=== PATIENT | male | born 1995 | race Two or more races ===

== ENCOUNTER 2017-07-05 21:02 | Emergency (ER) | payer MEDICAID ==
[2017-07-05 21:21] VITALS: BP 130/89
== END 2017-07-06 00:59 | disposition left against medical advice (07) ==
LOC: ER 21:02
DX: K21.9 Gastro-esophageal reflux disease without esophagitis (principal); Z53.21 Procedure and treatment not carried out due to patient leaving prior to being seen by health care provider

== ENCOUNTER 2023-01-17 05:48 | Emergency (ER) | payer MEDICAID ==
[~2023-01-17] VITALS: Ht 175.3 cm; Wt 109.0 kg
[2023-01-17 08:00] VITALS: PULSE 90; RESP 20; O2SAT 99
[2023-01-17] MEDS ORDERED: diphenhdrAMINE HCL 50 MG/1 ML VL IM ONE (08:00)
[2023-01-17] MEDS ORDERED: FAMOTIDINE 20 MG TAB PO ONE (08:00)
[2023-01-17] MEDS ORDERED: methylPREDNISolone SOD SUCC 125 MG/2 ML VL IV ONE (08:00)
[2023-01-17 08:24] VITALS: BP 112/80; PULSE 94; RESP 20; TEMP 98.6; O2SAT 99
[2023-01-17] MEDS ORDERED: EPIN0.3I24 IJ (08:32)
[2023-01-17] MEDS ORDERED: HYDR-3682 PO (08:32)
[2023-01-17] MEDS ORDERED: PRED20TA2 PO (08:32)
== END 2023-01-17 10:17 | disposition home or self-care (01) ==
LOC: ER 05:48
DX: T78.40XA Allergy, unspecified, initial encounter (principal); X58.XXXA Exposure to other specified factors, initial encounter
CPT/HCPCS: 96372; 96374; 99284; J1200; J2930

== ENCOUNTER 2023-03-28 17:35 | Emergency (ER) | payer MEDICAID ==
[~2023-03-28] VITALS: Ht 175.3 cm; Wt 114.0 kg
[~2023-03-28 17:35] MED LIST: EPIN0.3I24 IJ; HYDR-3682 PO; PRED20TA2 PO
[2023-03-28 18:20] VITALS: BP 133/85; PULSE 81; RESP 16; TEMP 97.1; O2SAT 96
[2023-03-28] MEDS ORDERED: AMOX875T4 PO (18:42)
[2023-03-28] MEDS ORDERED: CARB6.5S59 OT (18:42)
== END 2023-03-28 18:42 | disposition home or self-care (01) ==
LOC: ER 17:35
DX: H66.91 Otitis media, unspecified, right ear (principal); H61.21 Impacted cerumen, right ear

== ENCOUNTER 2023-04-01 19:53 | Emergency (ER) | payer MEDICAID ==
[~2023-04-01] VITALS: Ht 175.3 cm; Wt 116.0 kg
[~2023-04-01 19:53] MED LIST changes: +AMOX875T4 PO; +CARB6.5S59 OT
[2023-04-01 20:09] VITALS: BP 141/94; PULSE 96; RESP 18; O2SAT 98
== END 2023-04-01 23:41 | disposition left against medical advice (07) ==
LOC: ER 19:53
DX: H92.01 Otalgia, right ear (principal); Z53.21 Procedure and treatment not carried out due to patient leaving prior to being seen by health care provider